=== PATIENT | female | born 1965 | race Caucasian/White ===

== ENCOUNTER 2021-12-15 01:14 | Inpatient (IN) | payer MEDICARE, OTHER ==
[~2021-12-15] VITALS: Ht 160 cm; Wt 113.4 kg
[2021-12-15 01:27] VITALS: BP 122/66
[2021-12-15] MEDS ORDERED: TEMAZEPAM 7.5 MG CAPSULE PO PRN (01:30)
[2021-12-15] MEDS ORDERED: MAGNESIUM HYDROXIDE 30 ML LIQUID UDC PO PRN (01:30)
[2021-12-15] MEDS ORDERED: CLONAZEPAM 0.5 MG TABLET PO SCH (01:30)
--- NOTE | 2021-12-15 01:40 | NUR ---
GPS ADMISSION NOTE: Patient is a 56 year old female brought to [facility] on a 5150 for GD, as a direct admit from [facility]. Per the hold, this patient lives in [facility]. At the facility, the patient was angry, agitated and paranoid. Acting suspicious and claiming " [employer] is stealing my cloths'. Upon face to face evaluation, the patient is hyperverbal, demanding and controlling, trying to hypermanage the staff and argumentative. The unit rules were established , a Patients Rights Handbook and the Advisement were provided . The patient is needy and has multiple requests . VS are stable. Multiple medications and allergies are noted. A large amount of personal belongings inventoried. Safety Stratiges are in place. Continuing to monitor for behavior escalation and other issues that may arise. No acute distress noted at this time.
[2021-12-15] MEDS ORDERED: LACO100T2 PO (02:39)
[2021-12-15] MEDS ORDERED: OMEP40CA21 PO (02:39)
[2021-12-15] MEDS ORDERED: CARB1TAB21 PO (02:39)
[2021-12-15] MEDS ORDERED: POLY15DR27 EACHEYE (02:39)
[2021-12-15] MEDS ORDERED: FAMO20TA8 PO (02:39)
[2021-12-15] MEDS ORDERED: CYCL30DR OP (02:39)
[2021-12-15] MEDS ORDERED: METF-441 PO (02:39)
[2021-12-15] MEDS ORDERED: CYCL5TAB PO (02:39)
[2021-12-15] MEDS ORDERED: MAGN400T26 PO (02:39)
[2021-12-15] MEDS ORDERED: GABA600T12 PO (02:39)
[2021-12-15] MEDS ORDERED: MULT-1045 PO (02:39)
[2021-12-15] MEDS ORDERED: DIAZ5TAB4 PO (02:39)
[2021-12-15] MEDS ORDERED: ATOR10TA PO (02:39)
[2021-12-15] MEDS ORDERED: BUDE10.2 IH (02:39)
[2021-12-15] MEDS ORDERED: INSU100V7 SQ (02:39)
[2021-12-15] MEDS ORDERED: LACT10SO3 PO (02:39)
[2021-12-15] MEDS ORDERED: FAMO-132 PO (02:39)
[2021-12-15] MEDS ORDERED: VALS80TA2 PO (02:39)
[2021-12-15] MEDS ORDERED: LEVE1000 PO (02:39)
[2021-12-15] MEDS ORDERED: ROPI0.255 PO (02:39)
[2021-12-15] MEDS ORDERED: DOCU250C14 PO (02:39)
[2021-12-15] MEDS ORDERED: DEUT12TA PO (02:39)
[2021-12-15] MEDS ORDERED: TRAZ-257 PO (02:39)
[2021-12-15] MEDS ORDERED: QUET300T2 PO (02:39)
[2021-12-15] MEDS ORDERED: PSYL1PAC9 PO (02:39)
[2021-12-15] MEDS ORDERED: LORA10TA7 PO (02:49)
[2021-12-15] MEDS ORDERED: ONDA4TAB5 PO (02:49)
[2021-12-15] MEDS ORDERED: ALBU18HF2 IH (02:49)
[2021-12-15] MEDS ORDERED: HYDR2TAB4 PO (02:49)
[2021-12-15] MEDS ORDERED: DIPH25CA83 PO (02:49)
[2021-12-15] MEDS ORDERED: ACET-2154 PO (02:49)
[2021-12-15] MEDS ORDERED: LIDO30AD10 TD ×2 (02:53→14:55)
[2021-12-15] MEDS ORDERED: BISA10SU11 RC (02:53)
[2021-12-15] MEDS: ACETAMINOPHEN 325 MG TABLET PO PRN (07:00)
[2021-12-15 07:30] VITALS: BP 131/80
[2021-12-15] MEDS ORDERED: ALBUTEROL SULFATE 2.5 MG/3 ML NEBU NEB PRN (09:30)
[2021-12-15] MEDS ORDERED: HOME MED MISCELLANEOUS XX SCH ×3 (09:30→19:00)
[2021-12-15] MEDS ORDERED: LORATADINE 10 MG TABLET PO PRN (09:30)
[2021-12-15] MEDS ORDERED: ACETAMINOPHEN 325 MG TABLET-SA PATIENTS-PAIN ONLY PO PRN (09:30)
[2021-12-15] MEDS: GABAPENTIN 300 MG CAPSULE PO SCH ×2 (12:28→18:03)
[2021-12-15] MEDS: CARBIDOPA/LEVODOPA 25-100MG TABLET PO SCH ×2 (12:28→20:23)
[2021-12-15] MEDS: levETIRAcetam 500 MG TABLET PO SCH ×2 (12:28→20:26)
[2021-12-15] MEDS: CYCLOBENZAPRINE HCL 10 MG TABLET PO SCH ×2 (12:28→18:01)
[2021-12-15] MEDS: ropiniROLE 0.25 MG TABLET PO SCH ×2 (12:31→18:05)
[2021-12-15] MEDS: FLUTICASONE/VILANTEROL 1 EACH BLST.W.DEV INH SCH (12:31)
[2021-12-15] MEDS: VALSARTAN 80 MG TABLET PO SCH (12:32)
[2021-12-15 13:02] LABS: BILIRUBIN,TOTAL 0.3 mg/dL (0.2-1.0); CREATININE 0.8 mg/dL (0.6-1.3); POTASSIUM 4.1 mmol/L (3.5-5.1); TOTAL PROTEIN, SERUM 7.9 g/dL (6.4-8.2)
[2021-12-15] MEDS: HYDROMORPHONE HCL 2 MG TABLET PO PRN ×2 (13:26→20:28)
[2021-12-15] MEDS ORDERED: LIDOCAINE 5% PATCH TD SCH (15:00)
[2021-12-15] MEDS: MAG HYDROX/AL HYDROX/SIMETH 30 ML LIQUID UDC PO PRN (15:54)
[2021-12-15] MEDS: DIAZEPAM 5 MG TABLET PO PRN (15:54)
[2021-12-15 16:00] VITALS: BP 126/73
[2021-12-15] MEDS: DOCUSATE SODIUM 100 MG CAPSULE PO SCH (18:01)
[2021-12-15] MEDS: MAGNESIUM OXIDE 400 MG TABLET PO SCH (18:02)
[2021-12-15] MEDS: OXCARBAZEPINE 150 MG TABLET PO SCH (18:03)
[2021-12-15] MEDS: PSYLLIUM SEED PACKET PO SCH (18:04)
[2021-12-15] MEDS: FAMOTIDINE 20 MG TABLET PO SCH (18:04)
[2021-12-15] MEDS: METFORMIN HCL 850 MG TABLET PO SCH (18:06)
--- NOTE | 2021-12-15 18:41 | NUR ---
GPS: PT RECEIVED TODAY ON WHEELCHAIR. HYPERVERBAL, SOMETIMES SUSPICIOUS WITH MEDICATION SHE IS TAKING. PARANOID AND EASILY GET IRRITATED AND ALSO DEMANDING. PT WITH EPISODE OF LOWER BACK PAIN AND GIVEN MEDS AND TOLERATED WELL. COMPLIANT WITH CARE. HAD A SHOWER TODAY. PT SEEN WHEELING ON A WHEELCHAIR ALONG THE HALLWAY AND LIKES WATCHING TV WITH PEERS. PT STATED SHE WAS DEPRESSED AWHILE AGO BUT NOW ENJOYIMNG OTHERS COMPANY.
[2021-12-15] MEDS ORDERED: MAGNESIUM CITRATE 296 ML BOTTLE PO PRN (19:00)
[2021-12-15] MEDS ORDERED: MAGNESIUM CITRATE 296 ML BOTTLE PO ONE (19:00)
[2021-12-15] MEDS ORDERED: DEXTROSE 50% 50 ML DISP.SYRIN IV PRN (19:15)
--- NOTE | 2021-12-15 19:21 | NUR ---
GPS: PT STATED SHE HAS NO BM FOR 2 DAYS NOW AND LIKES LAXATIVE. PER PHARMACY, MAG CITRATE IS ON BACK ORDER. PT MADE AWARE. OFFERED DOLCULAX AND MOM BUT PT STATED SHE GETS MUSCLE CRAMPS.
[2021-12-15] MEDS: LACTULOSE 20 G/30 ML LIQUID UDC PO SCH (20:21)
[2021-12-15] MEDS: TRAZODONE 100 MG TABLET PO SCH (20:24)
[2021-12-15] MEDS: ATORVASTATIN 10 MG TABLET PO SCH (20:26)
[2021-12-15] MEDS: QUETIAPINE FUMARATE 200 MG TABLET PO SCH (20:27)
[2021-12-15 20:30] VITALS: BP 124/75
[2021-12-15] MEDS: BLOOD SUGAR DIAGNOSTIC 1 EACH STRIP VI SCH (20:30)
[2021-12-15] MEDS: INSULIN REGULAR, HUMAN 300 UNIT/3 ML VIAL SQ PRN (20:47)
[2021-12-15] MEDS: INSULIN GLARGINE,HUM 300 UNITS/3 ML CARTRIDGE SQ SCH (20:50)
[2021-12-15] MEDS: LIDOCAINE 5% PATCH TD SCH (20:50)
[2021-12-15] MEDS: ONDANSETRON HCL 4 MG TABLET PO PRN (21:01)
[2021-12-16] MEDS: HYDROMORPHONE HCL 2 MG TABLET PO PRN ×3 (05:13→20:05)
[2021-12-16] MEDS: BLOOD SUGAR DIAGNOSTIC 1 EACH STRIP VI SCH ×4 (06:33→20:15)
[2021-12-16 07:30] VITALS: BP 91/55
[2021-12-16] MEDS: ACETAMINOPHEN 325 MG TABLET PO PRN ×2 (08:10→16:06)
[2021-12-16] MEDS: VALSARTAN 80 MG TABLET PO SCH (09:00)
[2021-12-16] MEDS: DOCUSATE SODIUM 100 MG CAPSULE PO SCH ×2 (09:39→17:49)
[2021-12-16] MEDS: CYCLOBENZAPRINE HCL 10 MG TABLET PO SCH ×3 (09:39→17:49)
[2021-12-16] MEDS: METFORMIN HCL 850 MG TABLET PO SCH ×2 (09:40→17:51)
[2021-12-16] MEDS: MULTIVIT, IRON, MIN NO. 8, FA TABLET PO SCH (09:40)
[2021-12-16] MEDS: LACOSAMIDE 50 MG TABLET PO SCH ×2 (09:40→20:03)
[2021-12-16] MEDS: ropiniROLE 0.25 MG TABLET PO SCH ×3 (09:40→17:51)
[2021-12-16] MEDS: CARBIDOPA/LEVODOPA 25-100MG TABLET PO SCH ×2 (09:40→17:49)
[2021-12-16] MEDS: OXCARBAZEPINE 150 MG TABLET PO SCH ×2 (09:40→17:49)
[2021-12-16] MEDS: GABAPENTIN 300 MG CAPSULE PO SCH ×3 (09:40→17:49)
[2021-12-16] MEDS: MAGNESIUM OXIDE 400 MG TABLET PO SCH ×2 (09:40→17:49)
[2021-12-16] MEDS: FLUTICASONE/VILANTEROL 1 EACH BLST.W.DEV INH SCH (09:41)
[2021-12-16] MEDS: PSYLLIUM SEED PACKET PO SCH ×2 (09:41→17:50)
[2021-12-16] MEDS: LIDOCAINE 5% PATCH TD SCH ×3 (09:43→20:06)
[2021-12-16] MEDS: levETIRAcetam 500 MG TABLET PO SCH ×2 (09:47→20:03)
[2021-12-16] MEDS: FAMOTIDINE 20 MG TABLET PO SCH ×2 (09:47→17:52)
[2021-12-16] MEDS: INSULIN REGULAR, HUMAN 300 UNIT/3 ML VIAL SQ PRN ×3 (09:53→20:19)
[2021-12-16] MEDS: PROTEIN SUPPLEMENT (PROSTAT) 30 ML LIQUID PO SCH (13:05)
[2021-12-16 15:05] VITALS: BP 108/58
--- NOTE | 2021-12-16 16:07 | NUR ---
LATIA LPS Contact: LATIA contacted pt's LPS Conservator, Suri Carlos ([phone]) who stated she would like pt to return to [facility] ([phone]) upon discharge. LATIA stated she will inform Suri with further discharge updates once available by the facility. LATIA asked Suri to send LPS paperwork and provided fax number. Suri is aware and agreeable with the current plan and agreed to send paperwork.
--- NOTE | 2021-12-16 16:29 | NUR ---
LATIA Initial Discharge Note: Pt currently resides at [facility] located at [address] [place] [address]. ([phone]). LATIA contacted pt's LPS Conservator who stated she would like pt to return to [facility] upon discharge. LATIA contacted [facility] and spoke with Natividad who stated that she will confirm with the DON regarding pt's return and contact this report writer. LATIA stated to Natividad that the pt's LPS conservator would like the pt to return to the facility. The pt in addition stated to this report writer that she would like to return to the facility. LATIA will continue to work with pt, Suri, and to ensure a safe and proper discharge plan.
--- NOTE | 2021-12-16 18:26 | NUR ---
GPS: PT RECEIVED ON THE HALLWAY WHEELING USING A WHEELCHAIR. PT ALERT AND ORIENTED X3. PT ABLE TO MAKE NEEDS KNOWN. SOMEWHAT NEEDY AT TIMES. WITH LITTLE ARGUMENT HAPPENED WITH OTHER PT BUT WAS SETTLED [place] BOTH PTS. PT COMPLIANT WITH CARE AND MEDS.
[2021-12-16] MEDS ORDERED: LACOSAMIDE 50 MG TABLET PO SCH (20:00)
[2021-12-16] MEDS: LACTULOSE 20 G/30 ML LIQUID UDC PO SCH (20:02)
[2021-12-16] MEDS: ATORVASTATIN 10 MG TABLET PO SCH (20:03)
[2021-12-16] MEDS: QUETIAPINE FUMARATE 200 MG TABLET PO SCH (20:03)
[2021-12-16] MEDS: TRAZODONE 100 MG TABLET PO SCH (20:05)
[2021-12-16] MEDS: INSULIN GLARGINE,HUM 300 UNITS/3 ML CARTRIDGE SQ SCH (20:20)
[2021-12-16 21:15] VITALS: BP 114/55
--- NOTE | 2021-12-16 21:59 | NUR ---
OOB in wheelchair upon initial rounds. AAOx3-4. All needs attended. All due meds given without any difficulty. Medicated for pain as needed. Continent of bowel and bladder. VSS. Will monitor patient. No behavioral issues noted. Accucheck @ 2100 was 153 with coverage given plus her lantus given as well. No acute distress noted. VSS.
[2021-12-17] MEDS: BLOOD SUGAR DIAGNOSTIC 1 EACH STRIP VI SCH ×4 (06:31→20:39)
[2021-12-17 07:30] VITALS: BP 111/58
[2021-12-17] MEDS: ropiniROLE 0.25 MG TABLET PO SCH ×3 (08:49→17:21)
[2021-12-17] MEDS: METFORMIN HCL 850 MG TABLET PO SCH ×2 (08:49→17:20)
[2021-12-17] MEDS: CARBIDOPA/LEVODOPA 25-100MG TABLET PO SCH ×2 (08:50→17:18)
[2021-12-17] MEDS: VALSARTAN 80 MG TABLET PO SCH (08:50)
[2021-12-17] MEDS: levETIRAcetam 500 MG TABLET PO SCH ×2 (08:53→20:40)
[2021-12-17] MEDS: DOCUSATE SODIUM 100 MG CAPSULE PO SCH ×2 (08:53→17:17)
[2021-12-17] MEDS: OXCARBAZEPINE 150 MG TABLET PO SCH ×2 (08:53→17:19)
[2021-12-17] MEDS: CYCLOBENZAPRINE HCL 10 MG TABLET PO SCH ×3 (08:53→17:19)
[2021-12-17] MEDS: FAMOTIDINE 20 MG TABLET PO SCH ×2 (08:54→17:17)
[2021-12-17] MEDS: LACOSAMIDE 50 MG TABLET PO SCH ×2 (08:54→20:41)
[2021-12-17] MEDS: MAGNESIUM OXIDE 400 MG TABLET PO SCH ×2 (08:54→17:23)
[2021-12-17] MEDS: DIAZEPAM 5 MG TABLET PO PRN ×2 (08:54→20:44)
[2021-12-17] MEDS: GABAPENTIN 300 MG CAPSULE PO SCH ×3 (08:54→17:17)
[2021-12-17] MEDS: MULTIVIT, IRON, MIN NO. 8, FA TABLET PO SCH (08:54)
[2021-12-17] MEDS: PROTEIN SUPPLEMENT (PROSTAT) 30 ML LIQUID PO SCH (08:55)
[2021-12-17] MEDS: LIDOCAINE 5% PATCH TD SCH ×3 (08:56→20:49)
[2021-12-17] MEDS: POLYVINYL ALCOHOL OPHT DROPS 15 ML BOTTLE EACHEYE PRN (08:57)
[2021-12-17] MEDS: INSULIN REGULAR, HUMAN 300 UNIT/3 ML VIAL SQ PRN ×3 (09:56→20:45)
[2021-12-17] MEDS: PSYLLIUM SEED PACKET PO SCH ×2 (10:00→17:21)
[2021-12-17] MEDS: FLUTICASONE/VILANTEROL 1 EACH BLST.W.DEV INH SCH (10:01)
[2021-12-17] MEDS: HYDROMORPHONE HCL 2 MG TABLET PO PRN ×2 (10:19→18:18)
--- NOTE | 2021-12-17 12:18 | NUR ---
SW Discharge Update: SW contacted [facility] located at [address] [place] [address]. ([phone]) and spoke with Xuan. Pt's return to [facility] is currently not confirmed. SW will continue to follow-up.
--- NOTE | 2021-12-17 15:51 | NUR ---
Received patient awake in the activity room. A/O X 3 to person, place, situation. Pt. is demanding, attention seeker, hyperverbal, intrusive at times, needy. Patient was given Dilaudid 2 mg at 10:19 for lower back pain rated 9 on the scale of 1 to 10, effective. Valium 5 mg was given at 08:54 for anxiety, effective. Patient ambulates with wheelchair, unsteady gait. Blood glucose is 215, 4 units of regular insulin given per sliding scale. Pt. is encourage to verbalize concerns. Fall and safety precautions implemented.
[2021-12-17 16:46] VITALS: BP 101/39
[2021-12-17] MEDS: MAG HYDROX/AL HYDROX/SIMETH 30 ML LIQUID UDC PO PRN (18:19)
[2021-12-17 19:54] VITALS: BP 118/53
[2021-12-17] MEDS: QUETIAPINE FUMARATE 200 MG TABLET PO SCH (20:40)
[2021-12-17] MEDS: TRAZODONE 100 MG TABLET PO SCH (20:40)
[2021-12-17] MEDS: LACTULOSE 20 G/30 ML LIQUID UDC PO SCH (20:41)
[2021-12-17] MEDS: ATORVASTATIN 10 MG TABLET PO SCH (20:41)
[2021-12-17] MEDS: INSULIN GLARGINE,HUM 300 UNITS/3 ML CARTRIDGE SQ SCH (20:43)
[2021-12-17] MEDS: MIRALAX 17 GM POWD.PACK PO PRN (20:49)
[2021-12-17] MEDS: ONDANSETRON HCL 4 MG TABLET PO PRN (21:52)
[2021-12-17] MEDS: ACETAMINOPHEN 325 MG TABLET PO PRN (23:10)
--- NOTE | 2021-12-18 04:05 | NUR ---
Received patient in a wheelchair at the start of the shift. Although pleasant and oriented, this patient is very needy, has multiple requests and tries to hypermanage the staff. The patient in intrusive and does not have situational awareness of appropriate boundaries. Labile moods are noted . This radio script writer have seen the patient yell out and try to manipulate other patients on multiple occasions . This patient is on multiple medications and requests them often. Patient was able to engage in a meaningful conversation with this radio script writer and she stated " I have a split personality. When my other half of me thinks Zina is being messed with, she will go crazy and I cannot control here. She just shows up and all hell breaks loose "... Safety Stratiges are in place. Medication for constipation and nausea were given, plus pain medication ETC.. during the shift. Continuing to monitor patient for any behavior escalation and reiterating the unit rules and limit setting when needed.
[2021-12-18] MEDS: HYDROMORPHONE HCL 2 MG TABLET PO PRN ×2 (05:45→13:52)
[2021-12-18] MEDS: BLOOD SUGAR DIAGNOSTIC 1 EACH STRIP VI SCH ×4 (05:50→20:22)
[2021-12-18 06:58] VITALS: BP 106/53
[2021-12-18] MEDS: CYCLOBENZAPRINE HCL 10 MG TABLET PO SCH ×3 (08:46→18:04)
[2021-12-18] MEDS: OXCARBAZEPINE 150 MG TABLET PO SCH ×2 (08:47→18:04)
[2021-12-18] MEDS: GABAPENTIN 300 MG CAPSULE PO SCH ×3 (08:47→18:05)
[2021-12-18] MEDS: LACOSAMIDE 50 MG TABLET PO SCH ×2 (08:48→21:02)
[2021-12-18] MEDS: DOCUSATE SODIUM 100 MG CAPSULE PO SCH ×2 (08:48→18:02)
[2021-12-18] MEDS: FAMOTIDINE 20 MG TABLET PO SCH ×2 (08:49→18:03)
[2021-12-18] MEDS: MAGNESIUM OXIDE 400 MG TABLET PO SCH ×2 (08:50→18:03)
[2021-12-18] MEDS: DIAZEPAM 5 MG TABLET PO PRN (08:50)
[2021-12-18] MEDS: MULTIVIT, IRON, MIN NO. 8, FA TABLET PO SCH (08:51)
[2021-12-18] MEDS: METFORMIN HCL 850 MG TABLET PO SCH ×2 (08:52→18:06)
[2021-12-18] MEDS: ropiniROLE 0.25 MG TABLET PO SCH ×3 (08:52→18:06)
[2021-12-18] MEDS: LIDOCAINE 5% PATCH TD SCH ×3 (08:53→21:03)
[2021-12-18] MEDS: PSYLLIUM SEED PACKET PO SCH ×2 (08:53→18:04)
[2021-12-18] MEDS: POLYVINYL ALCOHOL OPHT DROPS 15 ML BOTTLE EACHEYE PRN (08:54)
[2021-12-18] MEDS: FLUTICASONE/VILANTEROL 1 EACH BLST.W.DEV INH SCH (08:54)
[2021-12-18] MEDS: VALSARTAN 80 MG TABLET PO SCH (08:55)
[2021-12-18] MEDS: PROTEIN SUPPLEMENT (PROSTAT) 30 ML LIQUID PO SCH (08:55)
[2021-12-18] MEDS: CARBIDOPA/LEVODOPA 25-100MG TABLET PO SCH ×2 (08:57→18:03)
[2021-12-18] MEDS: levETIRAcetam 500 MG TABLET PO SCH ×2 (08:57→21:02)
[2021-12-18] MEDS: INSULIN REGULAR, HUMAN 300 UNIT/3 ML VIAL SQ PRN ×3 (09:09→20:44)
[2021-12-18] MEDS: ACETAMINOPHEN 325 MG TABLET PO PRN (09:29)
--- NOTE | 2021-12-18 16:10 | NUR ---
Received patient awake in her room. A/O X 3 to person, place, situation. Pt. is demanding, needy, medication seeker, talkative. Patient was given Dilaudid 2 mg at 13:52 for lower back pain rated 9 on the scale of 1 to 10, effective. Blood glucose is 217, 4 units of regular insulin given per sliding scale. Pt. is encourage to verbalize feelings. Fall and safety precautions implemented.
[2021-12-18 16:58] VITALS: BP 91/51
[2021-12-18 20:25] VITALS: BP 116/61
[2021-12-18] MEDS: INSULIN GLARGINE,HUM 300 UNITS/3 ML CARTRIDGE SQ SCH (20:54)
[2021-12-18] MEDS: QUETIAPINE FUMARATE 200 MG TABLET PO SCH (21:01)
[2021-12-18] MEDS: ATORVASTATIN 10 MG TABLET PO SCH (21:02)
[2021-12-18] MEDS: LACTULOSE 20 G/30 ML LIQUID UDC PO SCH (21:06)
[2021-12-18] MEDS: TRAZODONE 100 MG TABLET PO SCH (21:07)
[2021-12-18] MEDS: MIRALAX 17 GM POWD.PACK PO PRN (21:07)
[2021-12-19] MEDS: HYDROMORPHONE HCL 2 MG TABLET PO PRN ×3 (03:26→19:49)
--- NOTE | 2021-12-19 04:46 | NUR ---
Patient in her w/c when received, A&0x3. Able to make needs known, compliant with medications, self care. Prn dilaudid given for back pain. effective. patient slept well. safety strategies in place.
[2021-12-19] MEDS: BLOOD SUGAR DIAGNOSTIC 1 EACH STRIP VI SCH ×4 (06:32→20:45)
[2021-12-19 07:44] VITALS: BP 105/67
[2021-12-19] MEDS: LACOSAMIDE 50 MG TABLET PO SCH ×2 (08:17→20:42)
[2021-12-19] MEDS: ACETAMINOPHEN 325 MG TABLET PO PRN ×2 (08:17→14:18)
[2021-12-19] MEDS: FAMOTIDINE 20 MG TABLET PO SCH ×2 (08:17→16:52)
[2021-12-19] MEDS: levETIRAcetam 500 MG TABLET PO SCH ×2 (08:18→20:41)
[2021-12-19] MEDS: CYCLOBENZAPRINE HCL 10 MG TABLET PO SCH ×3 (08:18→16:51)
[2021-12-19] MEDS: OXCARBAZEPINE 150 MG TABLET PO SCH ×2 (08:18→16:52)
[2021-12-19] MEDS: DOCUSATE SODIUM 100 MG CAPSULE PO SCH ×2 (08:18→16:51)
[2021-12-19] MEDS: MAGNESIUM OXIDE 400 MG TABLET PO SCH ×2 (08:19→16:52)
[2021-12-19] MEDS: GABAPENTIN 300 MG CAPSULE PO SCH ×3 (08:19→16:50)
[2021-12-19] MEDS: CARBIDOPA/LEVODOPA 25-100MG TABLET PO SCH ×2 (08:19→16:52)
[2021-12-19] MEDS: MULTIVIT, IRON, MIN NO. 8, FA TABLET PO SCH (08:19)
[2021-12-19] MEDS: ropiniROLE 0.25 MG TABLET PO SCH ×3 (08:20→16:52)
[2021-12-19] MEDS: METFORMIN HCL 850 MG TABLET PO SCH ×2 (08:21→17:01)
[2021-12-19] MEDS: PSYLLIUM SEED PACKET PO SCH ×2 (08:21→16:53)
[2021-12-19] MEDS: FLUTICASONE/VILANTEROL 1 EACH BLST.W.DEV INH SCH (08:21)
[2021-12-19] MEDS: PROTEIN SUPPLEMENT (PROSTAT) 30 ML LIQUID PO SCH (08:22)
[2021-12-19] MEDS: VALSARTAN 80 MG TABLET PO SCH (08:22)
[2021-12-19] MEDS: LIDOCAINE 5% PATCH TD SCH ×3 (08:24→20:43)
[2021-12-19 08:47] VITALS: BP 113/70
[2021-12-19] MEDS: DIAZEPAM 5 MG TABLET PO PRN (09:29)
[2021-12-19] MEDS: INSULIN REGULAR, HUMAN 300 UNIT/3 ML VIAL SQ PRN (12:29)
[2021-12-19 15:28] VITALS: BP 114/59
--- NOTE | 2021-12-19 15:48 | NUR ---
Received patient awake in her room. A/O X 4 to person, place. Pt. is demanding, hyperverbal, restless, medication seeker, sociable. Patient was given Dilaudid 2 mg at 11:18 for lower back pain rated 8 on the scale of 1 to 10, effective. Patient was given Tylenol 650 mg at 08:17 and 14:18 for headache, effective. Patient was given Diazepam 5 mg at 09:29 for anxiety, effective. Blood glucose is 139, 2 units of regular insulin given per sliding scale. Emotional support given. Fall and safety precautions implemented.
[2021-12-19 19:32] VITALS: BP 128/65
[2021-12-19] MEDS: QUETIAPINE FUMARATE 200 MG TABLET PO SCH (20:41)
[2021-12-19] MEDS: TRAZODONE 100 MG TABLET PO SCH (20:42)
[2021-12-19] MEDS: ATORVASTATIN 10 MG TABLET PO SCH (20:43)
[2021-12-19] MEDS: LACTULOSE 20 G/30 ML LIQUID UDC PO SCH (20:43)
[2021-12-19] MEDS: INSULIN GLARGINE,HUM 300 UNITS/3 ML CARTRIDGE SQ SCH (20:58)
[2021-12-20] MEDS: HYDROMORPHONE HCL 2 MG TABLET PO PRN ×3 (02:06→20:24)
--- NOTE | 2021-12-20 04:31 | NUR ---
Patient up only one time during the night asking for Dilaudid, otherwise remained in bed. Sleep hour are 7.00 so far. Safety Stratiges are in place.
[2021-12-20] MEDS: BLOOD SUGAR DIAGNOSTIC 1 EACH STRIP VI SCH ×4 (06:33→21:15)
[2021-12-20 07:28] VITALS: BP 119/62
[2021-12-20] MEDS: DOCUSATE SODIUM 100 MG CAPSULE PO SCH ×2 (08:57→16:45)
[2021-12-20] MEDS: LACOSAMIDE 50 MG TABLET PO SCH ×2 (08:57→20:25)
[2021-12-20] MEDS: MULTIVIT, IRON, MIN NO. 8, FA TABLET PO SCH (08:58)
[2021-12-20] MEDS: ropiniROLE 0.25 MG TABLET PO SCH ×3 (08:58→16:46)
[2021-12-20] MEDS: GABAPENTIN 300 MG CAPSULE PO SCH ×3 (08:58→16:45)
[2021-12-20] MEDS: OXCARBAZEPINE 150 MG TABLET PO SCH (08:58)
[2021-12-20] MEDS: FAMOTIDINE 20 MG TABLET PO SCH ×2 (08:58→16:45)
[2021-12-20] MEDS: METFORMIN HCL 850 MG TABLET PO SCH ×2 (08:58→17:03)
[2021-12-20] MEDS: MAGNESIUM OXIDE 400 MG TABLET PO SCH ×2 (08:59→16:47)
[2021-12-20] MEDS: CARBIDOPA/LEVODOPA 25-100MG TABLET PO SCH ×2 (08:59→16:46)
[2021-12-20] MEDS: DIAZEPAM 5 MG TABLET PO PRN ×2 (08:59→16:46)
[2021-12-20] MEDS: CYCLOBENZAPRINE HCL 10 MG TABLET PO SCH ×3 (08:59→16:45)
[2021-12-20] MEDS: levETIRAcetam 500 MG TABLET PO SCH ×2 (08:59→20:24)
[2021-12-20] MEDS: VALSARTAN 80 MG TABLET PO SCH (09:01)
[2021-12-20] MEDS: FLUTICASONE/VILANTEROL 1 EACH BLST.W.DEV INH SCH (09:01)
[2021-12-20] MEDS: LIDOCAINE 5% PATCH TD SCH ×3 (09:02→21:36)
[2021-12-20] MEDS: PSYLLIUM SEED PACKET PO SCH ×2 (09:07→16:46)
[2021-12-20] MEDS: PROTEIN SUPPLEMENT (PROSTAT) 30 ML LIQUID PO SCH (09:08)
--- NOTE | 2021-12-20 10:25 | NUR ---
WOUND CARE CONSULT: PT PRESENTS WITH REDNESS/RASH TO GROIN FOLDS AND BREAST FOLDS WHICH PT REPORTS IS ITCHY. RECOMMENDATIONS MADE FOR SKIN PROTECTION AND CARE. DISCUSSED WITH NURSING STAFF. MD IN AGREEMENT WITH PLAN OF CARE.
[2021-12-20] MEDS: BISACODYL 10 MG SUPP.RECT RC PRN (11:19)
[2021-12-20] MEDS: INSULIN REGULAR, HUMAN 300 UNIT/3 ML VIAL SQ PRN ×2 (11:58→21:20)
[2021-12-20] MEDS: diphenhydrAMINE 25 MG CAP PO PRN (14:57)
[2021-12-20] MEDS: LORATADINE 10 MG TABLET PO SCH (14:58)
--- NOTE | 2021-12-20 15:01 | NUR ---
GPS: Nursing Notes: Destructive Behavior To Others: Patient is awake and responding to her name, argumentative, overly demanding, gets easily irritable when setting limits, poor impulse control at times, anxious affect at times, continue to be compliant with her medications, participating in therapeutic groups, moving around the unit on her w/c, able to transfer from bed to chair by self, unable to formulate a viable plan for self care, loud at times, continue to monitor for safety, continue with treatment plan.
[2021-12-20] MEDS: ACETAMINOPHEN 325 MG TABLET PO PRN (15:21)
[2021-12-20 16:12] VITALS: BP 119/70
[2021-12-20] MEDS: CLOTRIMAZOLE 1% CREAM 30 GM TUBE TOP SCH (16:58)
[2021-12-20] MEDS: LACTULOSE 20 G/30 ML LIQUID UDC PO SCH (20:23)
[2021-12-20] MEDS: QUETIAPINE FUMARATE 200 MG TABLET PO SCH (20:25)
[2021-12-20] MEDS: SENNOSIDES 1 TABLET PO SCH (20:26)
[2021-12-20] MEDS: TRAZODONE 100 MG TABLET PO SCH (20:26)
[2021-12-20] MEDS: ATORVASTATIN 10 MG TABLET PO SCH (20:27)
[2021-12-20] MEDS: INSULIN GLARGINE,HUM 300 UNITS/3 ML CARTRIDGE SQ SCH (21:19)
[2021-12-20] MEDS: REMEDY ESSENTIAL ZINC PASTE 113 GM TOP SCH (21:36)
[2021-12-21] MEDS: HYDROMORPHONE HCL 2 MG TABLET PO PRN ×3 (05:19→22:20)
[2021-12-21] MEDS: BLOOD SUGAR DIAGNOSTIC 1 EACH STRIP VI SCH ×4 (05:27→20:22)
--- NOTE | 2021-12-21 05:54 | NUR ---
PATIENT ALERT ORIENTED, CALM AND COOPERATIVE WITH THE CARE, ON PAIN MANAGEMENT DUE CHRONIC LOWER BACK PAIN/HEAD PAIN, WITH NO ADVERSE REACTION NOTED, SLEPT MOST OF THE NIGHT. CONT TO MONITOR.
[2021-12-21 07:25] VITALS: BP 151/76
[2021-12-21 07:59] LABS: BILIRUBIN,TOTAL 0.1 mg/dL (0.2-1.0); CREATININE 0.7 mg/dL (0.6-1.3); POTASSIUM 4.3 mmol/L (3.5-5.1); TOTAL PROTEIN, SERUM 7.1 g/dL (6.4-8.2)
[2021-12-21 08:00] VITALS: BP 132/69
[2021-12-21] MEDS: LACOSAMIDE 50 MG TABLET PO SCH ×2 (08:53→20:29)
[2021-12-21] MEDS: FLUTICASONE/VILANTEROL 1 EACH BLST.W.DEV INH SCH (08:53)
[2021-12-21] MEDS: MAGNESIUM OXIDE 400 MG TABLET PO SCH ×2 (08:53→16:43)
[2021-12-21] MEDS: MULTIVIT, IRON, MIN NO. 8, FA TABLET PO SCH (08:53)
[2021-12-21] MEDS: DOCUSATE SODIUM 100 MG CAPSULE PO SCH ×2 (08:53→16:42)
[2021-12-21] MEDS: GABAPENTIN 300 MG CAPSULE PO SCH ×3 (08:53→16:42)
[2021-12-21] MEDS: OXCARBAZEPINE 150 MG TABLET PO SCH (08:53)
[2021-12-21] MEDS: FAMOTIDINE 20 MG TABLET PO SCH ×2 (08:53→16:43)
[2021-12-21] MEDS: CARBIDOPA/LEVODOPA 25-100MG TABLET PO SCH ×2 (08:53→16:43)
[2021-12-21] MEDS: METFORMIN HCL 850 MG TABLET PO SCH ×2 (08:53→17:05)
[2021-12-21] MEDS: CYCLOBENZAPRINE HCL 10 MG TABLET PO SCH ×3 (08:53→16:43)
[2021-12-21] MEDS: DIAZEPAM 5 MG TABLET PO PRN ×2 (08:54→16:43)
[2021-12-21] MEDS: VALSARTAN 80 MG TABLET PO SCH (08:54)
[2021-12-21] MEDS: LORATADINE 10 MG TABLET PO SCH (08:54)
[2021-12-21] MEDS: levETIRAcetam 500 MG TABLET PO SCH ×2 (08:54→20:28)
[2021-12-21] MEDS: CLOTRIMAZOLE 1% CREAM 30 GM TUBE TOP SCH ×2 (08:55→16:43)
[2021-12-21] MEDS: LIDOCAINE 5% PATCH TD SCH ×3 (08:55→20:33)
[2021-12-21] MEDS: PROTEIN SUPPLEMENT (PROSTAT) 30 ML LIQUID PO SCH (08:56)
[2021-12-21] MEDS: PSYLLIUM SEED PACKET PO SCH ×2 (08:57→16:42)
[2021-12-21] MEDS: ropiniROLE 0.25 MG TABLET PO SCH ×3 (08:58→16:43)
[2021-12-21] MEDS: REMEDY ESSENTIAL ZINC PASTE 113 GM TOP SCH ×2 (08:59→20:23)
[2021-12-21] MEDS: INSULIN REGULAR, HUMAN 300 UNIT/3 ML VIAL SQ PRN (11:37)
--- NOTE | 2021-12-21 12:32 | NUR ---
GPS: Nursing Notes: Destructive Behavior To Others: Patient is awake and responding to her name, argumentative, gets easily anxious when redirected, but following directions, anxious affect, participating in therapeutic groups, loud and anxious speech at times, A/Ox4, moving around the unit on her w/c, continue to monitor for safety, redirected during shift, cooperative with staff, unable to formulate a viable plan for self care, continue to monitor for safety, continue with treatment plan.
[2021-12-21] MEDS: diphenhydrAMINE 25 MG CAP PO PRN ×2 (13:01→22:19)
--- NOTE | 2021-12-21 13:37 | NUR ---
LATIA LPS Conservator Contact: LATIA contacted pt's LPS Conservator, Suri Carlos ([phone]) and stated that the DON is not accepting the pt to return to [facility] due to pt's behavior. Suri stated she would still like pt to return to [facility] ([phone]) upon discharge. LATIA stated she will inform Suri with further discharge updates once this SW speaks to the facility and DON. Suri, however is agreeable to additional nursing facilities in the event that [facility] does not accept the pt to return.
[2021-12-21 16:00] VITALS: BP 135/86
[2021-12-21] MEDS: ACETAMINOPHEN 325 MG TABLET PO PRN (16:44)
[2021-12-21 19:59] VITALS: BP 115/48
[2021-12-21] MEDS: TRAZODONE 100 MG TABLET PO SCH (20:23)
[2021-12-21] MEDS: INSULIN GLARGINE,HUM 300 UNITS/3 ML CARTRIDGE SQ SCH (20:26)
[2021-12-21] MEDS: LACTULOSE 20 G/30 ML LIQUID UDC PO SCH (20:26)
[2021-12-21] MEDS: QUETIAPINE FUMARATE 200 MG TABLET PO SCH (20:27)
[2021-12-21] MEDS: SENNOSIDES 1 TABLET PO SCH (20:28)
[2021-12-21] MEDS: ATORVASTATIN 10 MG TABLET PO SCH (20:33)
[2021-12-22] MEDS: BLOOD SUGAR DIAGNOSTIC 1 EACH STRIP VI SCH ×4 (06:03→20:59)
[2021-12-22] MEDS: HYDROMORPHONE HCL 2 MG TABLET PO PRN ×2 (06:05→15:22)
[2021-12-22 07:30] VITALS: BP 120/64
[2021-12-22] MEDS: METFORMIN HCL 850 MG TABLET PO SCH ×2 (07:34→17:13)
[2021-12-22] MEDS: PROTEIN SUPPLEMENT (PROSTAT) 30 ML LIQUID PO SCH (07:50)
[2021-12-22] MEDS: FLUTICASONE/VILANTEROL 1 EACH BLST.W.DEV INH SCH (08:57)
[2021-12-22] MEDS: OXCARBAZEPINE 150 MG TABLET PO SCH (08:58)
[2021-12-22] MEDS: levETIRAcetam 500 MG TABLET PO SCH ×2 (08:58→21:07)
[2021-12-22] MEDS: DOCUSATE SODIUM 100 MG CAPSULE PO SCH ×2 (08:58→17:04)
[2021-12-22] MEDS: LACOSAMIDE 50 MG TABLET PO SCH ×2 (08:59→21:06)
[2021-12-22] MEDS: ropiniROLE 0.25 MG TABLET PO SCH ×3 (08:59→17:13)
[2021-12-22] MEDS: MAGNESIUM OXIDE 400 MG TABLET PO SCH ×2 (08:59→17:05)
[2021-12-22] MEDS: DIAZEPAM 5 MG TABLET PO PRN ×2 (08:59→17:13)
[2021-12-22] MEDS: GABAPENTIN 300 MG CAPSULE PO SCH ×3 (09:00→17:05)
[2021-12-22] MEDS: CYCLOBENZAPRINE HCL 10 MG TABLET PO SCH ×3 (09:00→17:05)
[2021-12-22] MEDS: VALSARTAN 80 MG TABLET PO SCH (09:01)
[2021-12-22] MEDS: CLOTRIMAZOLE 1% CREAM 30 GM TUBE TOP SCH ×2 (09:02→17:15)
[2021-12-22] MEDS: CARBIDOPA/LEVODOPA 25-100MG TABLET PO SCH ×2 (09:02→17:05)
[2021-12-22] MEDS: REMEDY ESSENTIAL ZINC PASTE 113 GM TOP SCH ×2 (09:02→21:26)
[2021-12-22] MEDS: FAMOTIDINE 20 MG TABLET PO SCH ×2 (09:08→17:13)
[2021-12-22] MEDS: MULTIVIT, IRON, MIN NO. 8, FA TABLET PO SCH (09:09)
[2021-12-22] MEDS: LIDOCAINE 5% PATCH TD SCH ×3 (09:09→21:09)
[2021-12-22] MEDS: PSYLLIUM SEED PACKET PO SCH ×2 (09:11→17:13)
[2021-12-22] MEDS: LORATADINE 10 MG TABLET PO SCH (09:11)
[2021-12-22] MEDS: INSULIN REGULAR, HUMAN 300 UNIT/3 ML VIAL SQ PRN ×2 (12:21→17:08)
[2021-12-22] MEDS: diphenhydrAMINE 25 MG CAP PO PRN ×2 (12:41→21:08)
--- NOTE | 2021-12-22 15:03 | NUR ---
This patient is needy and demanding , requesting multiple medication all through the shifts. Hyper managing everything in rearguards to delivery of care, intrusive with other patients business and argumentative with peers. Safety Stratiges in place . Continuing to monitor for behavior escalation and for pain control. No acute issues noted at this time.
[2021-12-22 16:00] VITALS: BP 122/73
[2021-12-22 19:59] VITALS: BP 136/64
[2021-12-22] MEDS: TRAZODONE 100 MG TABLET PO SCH (21:04)
[2021-12-22] MEDS: LACTULOSE 20 G/30 ML LIQUID UDC PO SCH (21:04)
[2021-12-22] MEDS: ATORVASTATIN 10 MG TABLET PO SCH (21:07)
[2021-12-22] MEDS: SENNOSIDES 1 TABLET PO SCH (21:08)
[2021-12-22] MEDS: QUETIAPINE FUMARATE 200 MG TABLET PO SCH (21:08)
[2021-12-22] MEDS: INSULIN GLARGINE,HUM 300 UNITS/3 ML CARTRIDGE SQ SCH (21:25)
--- NOTE | 2021-12-22 21:27 | NUR ---
patient blood sugar 131 and should have 2 units coverage, but refused to have.
[2021-12-23] MEDS: HYDROMORPHONE HCL 2 MG TABLET PO PRN ×4 (00:13→21:26)
[2021-12-23] MEDS: ACETAMINOPHEN 325 MG TABLET PO PRN (04:08)
[2021-12-23] MEDS: BLOOD SUGAR DIAGNOSTIC 1 EACH STRIP VI SCH ×4 (06:03→21:29)
[2021-12-23 07:30] VITALS: BP 113/72
[2021-12-23] MEDS: PROTEIN SUPPLEMENT (PROSTAT) 30 ML LIQUID PO SCH (08:00)
[2021-12-23] MEDS: DIAZEPAM 5 MG TABLET PO PRN ×2 (08:59→18:15)
[2021-12-23] MEDS: LACOSAMIDE 50 MG TABLET PO SCH ×2 (08:59→21:17)
[2021-12-23] MEDS: CYCLOBENZAPRINE HCL 10 MG TABLET PO SCH ×3 (08:59→18:15)
[2021-12-23] MEDS: DOCUSATE SODIUM 100 MG CAPSULE PO SCH ×2 (08:59→18:15)
[2021-12-23] MEDS: GABAPENTIN 300 MG CAPSULE PO SCH ×3 (09:00→18:16)
[2021-12-23] MEDS: FAMOTIDINE 20 MG TABLET PO SCH ×2 (09:00→18:15)
[2021-12-23] MEDS: CARBIDOPA/LEVODOPA 25-100MG TABLET PO SCH ×2 (09:00→18:15)
[2021-12-23] MEDS: levETIRAcetam 500 MG TABLET PO SCH ×2 (09:00→21:17)
[2021-12-23] MEDS: ropiniROLE 0.25 MG TABLET PO SCH ×3 (09:01→18:19)
[2021-12-23] MEDS: METFORMIN HCL 850 MG TABLET PO SCH ×2 (09:01→18:18)
[2021-12-23] MEDS: VALSARTAN 80 MG TABLET PO SCH (09:02)
[2021-12-23] MEDS: LIDOCAINE 5% PATCH TD SCH ×3 (09:03→21:14)
[2021-12-23] MEDS: CLOTRIMAZOLE 1% CREAM 30 GM TUBE TOP SCH ×2 (09:05→17:00)
[2021-12-23] MEDS: OXCARBAZEPINE 150 MG TABLET PO SCH (09:11)
[2021-12-23] MEDS: MULTIVIT, IRON, MIN NO. 8, FA TABLET PO SCH (09:11)
[2021-12-23] MEDS: FLUTICASONE/VILANTEROL 1 EACH BLST.W.DEV INH SCH (09:22)
[2021-12-23] MEDS: PSYLLIUM SEED PACKET PO SCH ×2 (09:23→17:00)
[2021-12-23] MEDS: MAGNESIUM OXIDE 400 MG TABLET PO SCH ×2 (09:32→18:15)
[2021-12-23] MEDS: LORATADINE 10 MG TABLET PO SCH (09:32)
[2021-12-23] MEDS: REMEDY ESSENTIAL ZINC PASTE 113 GM TOP SCH (09:32)
--- NOTE | 2021-12-23 10:39 | NUR ---
LATIA LPS Conservator Contact: LATIA contacted pt's LPS Conservator, Surichayo Carlos ([phone]) who stated that she spoke to Lorraine at [facility] regarding patients acceptance back to return to the facility. Pt will be returning to [facility] [address] [place] [address] ([phone]).
[2021-12-23] MEDS: diphenhydrAMINE 25 MG CAP PO PRN ×2 (12:15→21:26)
[2021-12-23] MEDS: INSULIN REGULAR, HUMAN 300 UNIT/3 ML VIAL SQ PRN ×2 (12:32→22:15)
--- NOTE | 2021-12-23 12:48 | NUR ---
Gps/Farm Equipment Technician- Stayed in the activity room during her meals, had been compliant and specific about all of her routine medications, as reviewed . Patient verbalized concerns of her being constipated, claimed she has not move her bowels for 11 days.abdomen soft /obese Noted patient passing out gas, adequate fluid intake . Eating 100% each meal . Wheel self around, too focus on her last pain pill due. Seizure precautions, wears helmet. She can be intrusive, needy.Attends her group therapy, interacts with her peers.
[2021-12-23 16:00] VITALS: BP 129/73
[2021-12-23 20:25] VITALS: BP 133/70
[2021-12-23] MEDS: LACTULOSE 20 G/30 ML LIQUID UDC PO SCH (21:16)
[2021-12-23] MEDS: TRAZODONE 100 MG TABLET PO SCH (21:16)
[2021-12-23] MEDS: SENNOSIDES 1 TABLET PO SCH (21:17)
[2021-12-23] MEDS: QUETIAPINE FUMARATE 200 MG TABLET PO SCH (21:25)
[2021-12-23] MEDS: ATORVASTATIN 10 MG TABLET PO SCH (21:29)
[2021-12-23] MEDS: INSULIN GLARGINE,HUM 300 UNITS/3 ML CARTRIDGE SQ SCH (22:14)
[2021-12-24] MEDS: REMEDY ESSENTIAL ZINC PASTE 113 GM TOP SCH ×3 (00:14→20:25)
--- NOTE | 2021-12-24 04:00 | NUR ---
Patient alert oriented, calm and cooperative with care, took all her medications, still complain of chronic back pain, on pain management, slept most of the night cont to monitor.
[2021-12-24] MEDS: diphenhydrAMINE 25 MG CAP PO PRN ×2 (06:20→16:33)
[2021-12-24] MEDS: HYDROMORPHONE HCL 2 MG TABLET PO PRN ×3 (06:20→21:26)
[2021-12-24] MEDS: BLOOD SUGAR DIAGNOSTIC 1 EACH STRIP VI SCH ×4 (06:34→20:39)
[2021-12-24 07:30] VITALS: BP 120/69
[2021-12-24] MEDS: GABAPENTIN 300 MG CAPSULE PO SCH ×3 (08:53→17:38)
[2021-12-24] MEDS: OXCARBAZEPINE 150 MG TABLET PO SCH (08:53)
[2021-12-24] MEDS: METFORMIN HCL 850 MG TABLET PO SCH ×2 (08:53→17:39)
[2021-12-24] MEDS: FAMOTIDINE 20 MG TABLET PO SCH ×2 (08:54→17:37)
[2021-12-24] MEDS: CYCLOBENZAPRINE HCL 10 MG TABLET PO SCH ×3 (08:54→17:37)
[2021-12-24] MEDS: ropiniROLE 0.25 MG TABLET PO SCH ×3 (08:54→17:38)
[2021-12-24] MEDS: MULTIVIT, IRON, MIN NO. 8, FA TABLET PO SCH (08:54)
[2021-12-24] MEDS: DOCUSATE SODIUM 100 MG CAPSULE PO SCH ×2 (08:54→17:36)
[2021-12-24] MEDS: LACOSAMIDE 50 MG TABLET PO SCH ×2 (08:55→20:25)
[2021-12-24] MEDS: MAGNESIUM OXIDE 400 MG TABLET PO SCH ×2 (08:56→17:37)
[2021-12-24] MEDS: DIAZEPAM 5 MG TABLET PO PRN ×2 (08:56→17:37)
[2021-12-24] MEDS: LORATADINE 10 MG TABLET PO SCH (08:56)
[2021-12-24] MEDS: VALSARTAN 80 MG TABLET PO SCH (08:56)
[2021-12-24] MEDS: levETIRAcetam 500 MG TABLET PO SCH ×2 (08:56→20:24)
[2021-12-24] MEDS: FLUTICASONE/VILANTEROL 1 EACH BLST.W.DEV INH SCH (08:57)
[2021-12-24] MEDS: PROTEIN SUPPLEMENT (PROSTAT) 30 ML LIQUID PO SCH (08:57)
[2021-12-24] MEDS: PSYLLIUM SEED PACKET PO SCH ×2 (08:58→17:42)
[2021-12-24] MEDS: CARBIDOPA/LEVODOPA 25-100MG TABLET PO SCH ×2 (09:00→17:36)
[2021-12-24] MEDS: LIDOCAINE 5% PATCH TD SCH ×3 (09:09→20:25)
[2021-12-24] MEDS: CLOTRIMAZOLE 1% CREAM 30 GM TUBE TOP SCH ×2 (09:10→17:39)
--- NOTE | 2021-12-24 09:53 | NUR ---
Gps/Property Disposal Manager- Resolving redness/rashes to abdominal folds, groins, underneath bilat. breast, dorsal of feet , cream was applied as ordered. Continued compliance with routine medications, wheel self around , propels wheel chair around, seizure precautions observed and in progress, wears helmet. Making simple needs known to the staff, attending group tx. Pain level lower back tolerable.
[2021-12-24] MEDS: INSULIN REGULAR, HUMAN 300 UNIT/3 ML VIAL SQ PRN ×2 (11:53→20:42)
--- NOTE | 2021-12-24 12:46 | NUR ---
Gps/Remediation Consultant- Patient awakened for her lunch claimed she woke up with a terrible h/a, c/o lower back pain 12/22 , requesting prn pain med. ,medicated with dilaudid 2 mg 1 tab.po. as requested. Encouraged to go to the dinning room during her lunch.
--- NOTE | 2021-12-24 14:25 | NUR ---
Gps/Pipeline Integrity Engineer- Complained of numbness of her left 5th small finger , claimed she was feeling cold and requesting long sleeve shirt, offered blanket to wrap around her shoulder. Remain up in her chair attending her group group therapy .Will continue to monitor complaints of numbness, v/s stable , encouraged stay up sitting too long needing to move around
[2021-12-24 16:00] VITALS: BP 119/73
[2021-12-24] MEDS: ACETAMINOPHEN 325 MG TABLET PO PRN (16:28)
[2021-12-24 19:56] VITALS: BP 135/63
[2021-12-24] MEDS: LACTULOSE 20 G/30 ML LIQUID UDC PO SCH (20:23)
[2021-12-24] MEDS: TRAZODONE 100 MG TABLET PO SCH (20:24)
[2021-12-24] MEDS: SENNOSIDES 1 TABLET PO SCH (20:24)
[2021-12-24] MEDS: ATORVASTATIN 10 MG TABLET PO SCH (20:24)
[2021-12-24] MEDS: QUETIAPINE FUMARATE 200 MG TABLET PO SCH (20:27)
[2021-12-24] MEDS: INSULIN GLARGINE,HUM 300 UNITS/3 ML CARTRIDGE SQ SCH (20:41)
[2021-12-24] MEDS ORDERED: TRAZODONE 100 MG TABLET PO SCH (21:00)
[2021-12-25] MEDS: HYDROMORPHONE HCL 2 MG TABLET PO PRN ×2 (05:29→16:29)
[2021-12-25] MEDS: BLOOD SUGAR DIAGNOSTIC 1 EACH STRIP VI SCH ×4 (06:22→20:01)
[2021-12-25] MEDS: PROTEIN SUPPLEMENT (PROSTAT) 30 ML LIQUID PO SCH (08:00)
[2021-12-25 08:11] VITALS: BP 117/60
[2021-12-25] MEDS: DOCUSATE SODIUM 100 MG CAPSULE PO SCH ×2 (08:25→16:39)
[2021-12-25] MEDS: GABAPENTIN 300 MG CAPSULE PO SCH ×3 (08:25→16:39)
[2021-12-25] MEDS: CARBIDOPA/LEVODOPA 25-100MG TABLET PO SCH ×2 (08:26→16:40)
[2021-12-25] MEDS: levETIRAcetam 500 MG TABLET PO SCH ×2 (08:26→20:13)
[2021-12-25] MEDS: DIAZEPAM 5 MG TABLET PO PRN ×2 (08:26→16:39)
[2021-12-25] MEDS: OXCARBAZEPINE 150 MG TABLET PO SCH (08:26)
[2021-12-25] MEDS: FAMOTIDINE 20 MG TABLET PO SCH ×2 (08:26→16:40)
[2021-12-25] MEDS: CYCLOBENZAPRINE HCL 10 MG TABLET PO SCH ×3 (08:26→16:40)
[2021-12-25] MEDS: MULTIVIT, IRON, MIN NO. 8, FA TABLET PO SCH (08:26)
[2021-12-25] MEDS: MAGNESIUM OXIDE 400 MG TABLET PO SCH ×2 (08:26→16:40)
[2021-12-25] MEDS: LACOSAMIDE 50 MG TABLET PO SCH ×2 (08:26→20:14)
[2021-12-25] MEDS: FLUTICASONE/VILANTEROL 1 EACH BLST.W.DEV INH SCH (08:27)
[2021-12-25] MEDS: LORATADINE 10 MG TABLET PO SCH (08:27)
[2021-12-25] MEDS: METFORMIN HCL 850 MG TABLET PO SCH ×2 (08:28→17:35)
[2021-12-25] MEDS: VALSARTAN 80 MG TABLET PO SCH (08:29)
[2021-12-25] MEDS: ropiniROLE 0.25 MG TABLET PO SCH ×3 (08:29→16:39)
[2021-12-25] MEDS: LIDOCAINE 5% PATCH TD SCH ×3 (08:30→20:14)
[2021-12-25] MEDS: CLOTRIMAZOLE 1% CREAM 30 GM TUBE TOP SCH ×2 (08:31→16:41)
[2021-12-25] MEDS: REMEDY ESSENTIAL ZINC PASTE 113 GM TOP SCH ×2 (08:31→20:12)
[2021-12-25] MEDS: PSYLLIUM SEED PACKET PO SCH ×2 (08:32→16:40)
[2021-12-25] MEDS: diphenhydrAMINE 25 MG CAP PO PRN (10:11)
[2021-12-25] MEDS: INSULIN REGULAR, HUMAN 300 UNIT/3 ML VIAL SQ PRN (11:49)
--- NOTE | 2021-12-25 12:52 | NUR ---
Gps/Fireworks Inspector- Patient requesting to be showered, but wants female staff to assist her, with no male staff ever. Offered to assist her with her shower after lunch.
--- NOTE | 2021-12-25 13:45 | NUR ---
Gps/Social Insurance Analyst- Assisted patient in showering ,needing assist with her back, seizure precaution, observed Resolving redness to abdominal folds, underneath breast, groins, z-guard to lower abdominal folds,, antifungal cream applied underneath breast , as well as to dorsal part of her foot . Remains up in her wheel chair participating in her group activity. Complaining of being constipated, passing out gas, last BM 2 days ago per pt. offered miralax 1 packet as ordered, in a cup of water. Interacting fairly well with her selected peers
[2021-12-25 16:32] VITALS: BP 120/51
[2021-12-25 20:00] VITALS: BP 124/70
[2021-12-25] MEDS: SENNOSIDES 1 TABLET PO SCH (20:13)
[2021-12-25] MEDS: QUETIAPINE FUMARATE 200 MG TABLET PO SCH (20:13)
[2021-12-25] MEDS: LACTULOSE 20 G/30 ML LIQUID UDC PO SCH (20:14)
[2021-12-25] MEDS: INSULIN GLARGINE,HUM 300 UNITS/3 ML CARTRIDGE SQ SCH (20:18)
[2021-12-25] MEDS: TRAZODONE 100 MG TABLET PO SCH (20:20)
[2021-12-25] MEDS: ATORVASTATIN 10 MG TABLET PO SCH (20:20)
[2021-12-25] MEDS: BISACODYL 10 MG SUPP.RECT RC PRN (20:21)
[2021-12-26] MEDS: HYDROMORPHONE HCL 2 MG TABLET PO PRN ×2 (03:18→14:44)
[2021-12-26] MEDS: BLOOD SUGAR DIAGNOSTIC 1 EACH STRIP VI SCH ×4 (05:54→21:07)
--- NOTE | 2021-12-26 05:54 | NUR ---
Patient slept 5.15 hours. Up early this am. C/o constipation. Suppository given last night with no results. Will endorse to oncoming nurse. Safety Stratiges are in place. No combative or labile behavior noted.
[2021-12-26 07:30] VITALS: BP 115/54
[2021-12-26] MEDS: ACETAMINOPHEN 325 MG TABLET PO PRN (07:53)
[2021-12-26] MEDS: PROTEIN SUPPLEMENT (PROSTAT) 30 ML LIQUID PO SCH (08:00)
[2021-12-26] MEDS: FLUTICASONE/VILANTEROL 1 EACH BLST.W.DEV INH SCH (08:46)
[2021-12-26] MEDS: MAGNESIUM OXIDE 400 MG TABLET PO SCH ×2 (08:47→17:34)
[2021-12-26] MEDS: DOCUSATE SODIUM 100 MG CAPSULE PO SCH ×2 (08:47→17:33)
[2021-12-26] MEDS: levETIRAcetam 500 MG TABLET PO SCH ×2 (08:47→20:41)
[2021-12-26] MEDS: FAMOTIDINE 20 MG TABLET PO SCH ×2 (08:47→17:34)
[2021-12-26] MEDS: LACOSAMIDE 50 MG TABLET PO SCH ×2 (08:47→20:41)
[2021-12-26] MEDS: LORATADINE 10 MG TABLET PO SCH (08:47)
[2021-12-26] MEDS: METFORMIN HCL 850 MG TABLET PO SCH ×2 (08:48→17:34)
[2021-12-26] MEDS: ropiniROLE 0.25 MG TABLET PO SCH ×3 (08:48→17:34)
[2021-12-26] MEDS: CYCLOBENZAPRINE HCL 10 MG TABLET PO SCH ×3 (08:48→17:43)
[2021-12-26] MEDS: GABAPENTIN 300 MG CAPSULE PO SCH ×3 (08:48→17:34)
[2021-12-26] MEDS: CARBIDOPA/LEVODOPA 25-100MG TABLET PO SCH ×2 (08:48→17:34)
[2021-12-26] MEDS: PSYLLIUM SEED PACKET PO SCH ×2 (08:49→17:36)
[2021-12-26] MEDS: VALSARTAN 80 MG TABLET PO SCH (08:49)
[2021-12-26] MEDS: CLOTRIMAZOLE 1% CREAM 30 GM TUBE TOP SCH ×2 (08:50→17:35)
[2021-12-26] MEDS: REMEDY ESSENTIAL ZINC PASTE 113 GM TOP SCH ×2 (08:50→20:44)
[2021-12-26] MEDS: MULTIVIT, IRON, MIN NO. 8, FA TABLET PO SCH (08:52)
[2021-12-26] MEDS: OXCARBAZEPINE 150 MG TABLET PO SCH (09:00)
[2021-12-26] MEDS: LIDOCAINE 5% PATCH TD SCH ×3 (09:20→20:44)
[2021-12-26] MEDS: diphenhydrAMINE 25 MG CAP PO PRN ×2 (09:43→21:28)
[2021-12-26] MEDS ORDERED: FLEET ENEMA 133 ML BOTTLE RC ONE (11:00)
[2021-12-26] MEDS ORDERED: SORBITOL 70% SOLUTION 30 ML UDC PO ONE (12:00)
[2021-12-26] MEDS: INSULIN REGULAR, HUMAN 300 UNIT/3 ML VIAL SQ PRN ×2 (12:08→20:35)
--- NOTE | 2021-12-26 14:57 | NUR ---
Gps/Concrete Pump Operator Helper- Patient finally had large soft bowel movement, after sorbitol 70% one time dose po . requesting staff to witness
[2021-12-26 16:00] VITALS: BP 124/72
--- NOTE | 2021-12-26 17:00 | NUR ---
Gps/Commissioning Manager-Stayed in the activity room most of the time, participating in her group activities. Less needy, less demanding behavior
[2021-12-26] MEDS: DIAZEPAM 5 MG TABLET PO PRN (17:34)
[2021-12-26 20:14] VITALS: BP 116/66
[2021-12-26] MEDS: INSULIN GLARGINE,HUM 300 UNITS/3 ML CARTRIDGE SQ SCH (20:34)
[2021-12-26] MEDS: LACTULOSE 20 G/30 ML LIQUID UDC PO SCH (20:39)
[2021-12-26] MEDS: TRAZODONE 100 MG TABLET PO SCH (20:42)
[2021-12-26] MEDS: ATORVASTATIN 10 MG TABLET PO SCH (20:43)
[2021-12-26] MEDS: SENNOSIDES 1 TABLET PO SCH (20:43)
[2021-12-26] MEDS: QUETIAPINE FUMARATE 200 MG TABLET PO SCH (20:43)
[2021-12-27] MEDS: ACETAMINOPHEN 325 MG TABLET PO PRN ×2 (00:05→09:29)
[2021-12-27] MEDS: HYDROMORPHONE HCL 2 MG TABLET PO PRN ×3 (06:08→20:37)
[2021-12-27] MEDS: BLOOD SUGAR DIAGNOSTIC 1 EACH STRIP VI SCH ×4 (06:08→20:24)
--- NOTE | 2021-12-27 06:49 | NUR ---
Patient slept 4.30 hours. No changes from previous night. Patient continues to be needy and asks for medications and many other items. Safety Stratiges are in place. Continuing to monitor pain and unpredictable behavior.
[2021-12-27 07:43] VITALS: BP 126/60
[2021-12-27] MEDS: DOCUSATE SODIUM 100 MG CAPSULE PO SCH ×2 (08:17→16:32)
[2021-12-27] MEDS: DIAZEPAM 5 MG TABLET PO PRN (08:17)
[2021-12-27] MEDS: CYCLOBENZAPRINE HCL 10 MG TABLET PO SCH ×3 (08:17→16:31)
[2021-12-27] MEDS: LACOSAMIDE 50 MG TABLET PO SCH ×2 (08:17→20:26)
[2021-12-27] MEDS: FAMOTIDINE 20 MG TABLET PO SCH ×2 (08:18→16:32)
[2021-12-27] MEDS: levETIRAcetam 500 MG TABLET PO SCH ×2 (08:18→20:25)
[2021-12-27] MEDS: OXCARBAZEPINE 150 MG TABLET PO SCH (08:18)
[2021-12-27] MEDS: MULTIVIT, IRON, MIN NO. 8, FA TABLET PO SCH (08:18)
[2021-12-27] MEDS: MAGNESIUM OXIDE 400 MG TABLET PO SCH ×2 (08:18→16:32)
[2021-12-27] MEDS: GABAPENTIN 300 MG CAPSULE PO SCH ×3 (08:18→16:32)
[2021-12-27] MEDS: LORATADINE 10 MG TABLET PO SCH (08:18)
[2021-12-27] MEDS: LIDOCAINE 5% PATCH TD SCH ×3 (08:19→20:24)
[2021-12-27] MEDS: REMEDY ESSENTIAL ZINC PASTE 113 GM TOP SCH ×2 (08:19→20:27)
[2021-12-27] MEDS: CLOTRIMAZOLE 1% CREAM 30 GM TUBE TOP SCH ×2 (08:20→16:34)
[2021-12-27] MEDS: METFORMIN HCL 850 MG TABLET PO SCH ×2 (08:21→16:36)
[2021-12-27] MEDS: ropiniROLE 0.25 MG TABLET PO SCH ×3 (08:22→16:31)
[2021-12-27] MEDS: VALSARTAN 80 MG TABLET PO SCH (08:22)
[2021-12-27] MEDS: PSYLLIUM SEED PACKET PO SCH ×2 (08:23→16:33)
[2021-12-27] MEDS: CARBIDOPA/LEVODOPA 25-100MG TABLET PO SCH ×2 (08:25→16:32)
[2021-12-27] MEDS: PROTEIN SUPPLEMENT (PROSTAT) 30 ML LIQUID PO SCH (08:39)
[2021-12-27] MEDS: FLUTICASONE/VILANTEROL 1 EACH BLST.W.DEV INH SCH (08:41)
[2021-12-27] MEDS: INSULIN REGULAR, HUMAN 300 UNIT/3 ML VIAL SQ PRN ×2 (13:30→20:34)
--- NOTE | 2021-12-27 14:15 | NUR ---
patient is alert and oriented continued compliance with her routine meds. gets loud, needy ,staying in the dinning room each meal , kept self busy , doing drawings/arts
[2021-12-27 16:20] VITALS: BP 134/78
[2021-12-27] MEDS: diphenhydrAMINE 25 MG CAP PO PRN (16:54)
[2021-12-27 19:43] VITALS: BP 136/52
[2021-12-27] MEDS: SENNOSIDES 1 TABLET PO SCH (20:25)
[2021-12-27] MEDS: LACTULOSE 20 G/30 ML LIQUID UDC PO SCH (20:25)
[2021-12-27] MEDS: QUETIAPINE FUMARATE 200 MG TABLET PO SCH (20:26)
[2021-12-27] MEDS: INSULIN GLARGINE,HUM 300 UNITS/3 ML CARTRIDGE SQ SCH (20:29)
[2021-12-27] MEDS: TRAZODONE 100 MG TABLET PO SCH (20:30)
[2021-12-27] MEDS: ATORVASTATIN 10 MG TABLET PO SCH (20:37)
[2021-12-28] MEDS: ACETAMINOPHEN 325 MG TABLET PO PRN (01:16)
[2021-12-28] MEDS: diphenhydrAMINE 25 MG CAP PO PRN ×2 (03:33→12:26)
[2021-12-28] MEDS: BLOOD SUGAR DIAGNOSTIC 1 EACH STRIP VI SCH ×2 (06:11→11:39)
--- NOTE | 2021-12-28 06:21 | NUR ---
Patient going to be discharged today. Behavior during the shift unchanged. Needy, attention seeking, hyper managing and frequent requests for medications. Safety Stratiges are in place. Continuing to monitor for any behavior escalation.
[2021-12-28 07:30] VITALS: BP 120/75
[2021-12-28] MEDS: LACOSAMIDE 50 MG TABLET PO SCH (08:51)
[2021-12-28] MEDS: CYCLOBENZAPRINE HCL 10 MG TABLET PO SCH ×2 (08:52→12:21)
[2021-12-28] MEDS: DOCUSATE SODIUM 100 MG CAPSULE PO SCH (08:52)
[2021-12-28] MEDS: GABAPENTIN 300 MG CAPSULE PO SCH ×2 (08:53→12:21)
[2021-12-28] MEDS: levETIRAcetam 500 MG TABLET PO SCH (08:54)
[2021-12-28] MEDS: LORATADINE 10 MG TABLET PO SCH (08:54)
[2021-12-28] MEDS: MULTIVIT, IRON, MIN NO. 8, FA TABLET PO SCH (08:55)
[2021-12-28] MEDS: MAGNESIUM OXIDE 400 MG TABLET PO SCH (08:55)
[2021-12-28] MEDS: FAMOTIDINE 20 MG TABLET PO SCH (08:55)
[2021-12-28] MEDS: OXCARBAZEPINE 150 MG TABLET PO SCH (08:55)
[2021-12-28] MEDS: CARBIDOPA/LEVODOPA 25-100MG TABLET PO SCH (08:55)
[2021-12-28 08:56] VITALS: BP 120/75
[2021-12-28] MEDS: VALSARTAN 80 MG TABLET PO SCH (08:56)
[2021-12-28] MEDS: METFORMIN HCL 850 MG TABLET PO SCH (08:57)
[2021-12-28] MEDS: ropiniROLE 0.25 MG TABLET PO SCH ×2 (08:57→12:21)
[2021-12-28] MEDS: LIDOCAINE 5% PATCH TD SCH ×2 (08:58→09:04)
[2021-12-28] MEDS: PROTEIN SUPPLEMENT (PROSTAT) 30 ML LIQUID PO SCH (09:00)
[2021-12-28] MEDS: FLUTICASONE/VILANTEROL 1 EACH BLST.W.DEV INH SCH (09:01)
[2021-12-28] MEDS: PSYLLIUM SEED PACKET PO SCH (09:02)
[2021-12-28] MEDS: REMEDY ESSENTIAL ZINC PASTE 113 GM TOP SCH (09:03)
[2021-12-28] MEDS: CLOTRIMAZOLE 1% CREAM 30 GM TUBE TOP SCH (09:03)
[2021-12-28] MEDS: HYDROMORPHONE HCL 2 MG TABLET PO PRN (10:05)
--- NOTE | 2021-12-28 11:00 | NUR ---
Received patient awake in the Activity room. A/O X 4 to person, place, situation. Pt. is needy, demanding, cooperative with nursing care and compliant with medications. Blood glucose is 175, 3 units of regular insulin given per sliding scale. Emotional support given. Fall and safety precautions implemented.
[2021-12-28] MEDS: INSULIN REGULAR, HUMAN 300 UNIT/3 ML VIAL SQ PRN (12:30)
--- NOTE | 2021-12-28 13:54 | NUR ---
Received orders to discharge this patient to [facility] by [facility]. Pt. is agreeable with discharge plans, and signed all discharge documents. All valuables ans belongings were returned to patient. Patient left the unit at 13:45. Pt. denies SI/HI AH/VH, SOB, pain. Reassurance given. Fall and safety precautions implemented.
== END 2021-12-28 13:45 | DRG 885 ==
LOC: GPS 01:14
PROVIDERS: ADMIT Nurse Practitioner Psychiatric/Mental Health; ATTEND Nurse Practitioner Acute Care
DX: F25.0 Schizoaffective disorder, bipolar type (principal); Z68.41 Body mass index [BMI] 40.0-44.9, adult; F41.9 Anxiety disorder, unspecified; E78.5 Hyperlipidemia, unspecified; G40.909 Epilepsy, unspecified, not intractable, without status epilepticus; G20 Parkinson's disease; E11.9 Type 2 diabetes mellitus without complications; I10 Essential (primary) hypertension; G89.29 Other chronic pain; K59.00 Constipation, unspecified; L30.8 Other specified dermatitis; Z73.6 Limitation of activities due to disability; F29 Unspecified psychosis not due to a substance or known physiological condition; E66.01 Morbid (severe) obesity due to excess calories; Z20.822 Contact with and (suspected) exposure to COVID-19
CPT/HCPCS: 36415; 97161; A4663; J1815; J8499; Q0162; Q0163